=== PATIENT | male | born 1980 | race Caucasian/White ===

== ENCOUNTER 2021-01-07 12:19 | Inpatient (IN) | payer OTHER ==
[2021-01-07 13:04] VITALS: BMI 23.6
[2021-01-07] MEDS ORDERED: BISMUTH SUBSALICYLATE 262 MG/15 ML BTL PO PRN (13:32)
[2021-01-07] MEDS ORDERED: MAG HYDROX/AL HYDROX/SIMETH 30 ML UNIT-DOSE CUP PO PRN (13:32)
[2021-01-07] MEDS ORDERED: MAGNESIUM CITRATE 300 ML BOTTLE PO PRN (13:32)
[2021-01-07] MEDS ORDERED: MENTHOL/PHENOL 1 EACH UD MM PRN (13:32)
[2021-01-07] MEDS ORDERED: IBUPROFEN 400 MG TABLET (FP) PO PRN (13:32)
[2021-01-07] MEDS ORDERED: METHOCARBAMOL 500 MG TABLET PO PRN (13:32)
[2021-01-07] MEDS ORDERED: ACETAMINOPHEN 325 MG TABLET (FP) PO PRN ×2 (13:32)
[2021-01-07] MEDS ORDERED: ONDANSETRON *ODT* 4 MG TABLET SL PRN (13:32)
[2021-01-07] MEDS ORDERED: MAGNESIUM HYDROX 2400MG/30ML ORAL SUSPENSION 30 ML CUP PO PRN (13:32)
[2021-01-07] MEDS: PRENATAL VITAMINS W/ FOLIC ACID TABLET (FP) PO SCH (14:38)
[2021-01-07] MEDS: diazePAM 5 MG TABLET PO SCH ×3 (14:38→22:28)
[2021-01-07] MEDS: hydrOXYzine PAMOATE 25 MG CAPSULE (FP) PO SCH ×3 (14:38→22:27)
[2021-01-07 18:06] LABS: HEMATOCRIT 35.4 % (35.4-49); HEMOGLOBIN 12.3 GM/dL (11.7-16.9); MCH 35.2 pg (25.7-33.7); MCHC 34.7 g/dl (32.0-35.9); MEAN CELL VOLUME 101.2 fl (80-96); MEAN PLT VOLUME 6.6 fl (7.5-11.1); PLATELET COUNT 156 K/MM3 (134-434); WHITE BLOOD COUNT 3.1 K/mm3 (4.0-10.0)
[2021-01-07 18:12] LABS: ALBUMIN 4.3 g/dl (3.4-5.0); BLOOD UREA NITROGEN 7.1 mg/dL (7-18); CALCIUM 8.9 mg/dL (8.5-10.1)
[2021-01-07 18:15] LABS: CREATININE 0.8 mg/dL (0.55-1.3)
[2021-01-07 18:17] LABS: BILIRUBIN,TOTAL 0.9 mg/dL (0.2-1); TOT PROT 7.6 g/dl (6.4-8.2)
[2021-01-07 19:08] LABS: HIV INTERPRETATION NEGATIVE (NEGATIVE)
[2021-01-07] MEDS: THIAMINE HCL 100 MG TABLET (FP) PO SCH (22:27)
[2021-01-07] MEDS: MELATONIN 5 MG TABLETS PO SCH (22:27)
[2021-01-08] MEDS: diazePAM 5 MG TABLET PO SCH ×4 (06:09→22:06)
[2021-01-08] MEDS: hydrOXYzine PAMOATE 25 MG CAPSULE (FP) PO SCH ×5 (06:10→22:07)
[2021-01-08] MEDS: PRENATAL VITAMINS W/ FOLIC ACID TABLET (FP) PO SCH (10:24)
[2021-01-08] MEDS: THIAMINE HCL 100 MG TABLET (FP) PO SCH (22:07)
[2021-01-08] MEDS: MELATONIN 5 MG TABLETS PO SCH (22:07)
[2021-01-09] MEDS: diazePAM 5 MG TABLET PO SCH ×3 (05:43→22:08)
[2021-01-09] MEDS: hydrOXYzine PAMOATE 25 MG CAPSULE (FP) PO SCH ×5 (05:43→22:08)
[2021-01-09] MEDS: diazePAM 5 MG TABLET PO PRN (08:12)
[2021-01-09] MEDS: PRENATAL VITAMINS W/ FOLIC ACID TABLET (FP) PO SCH (10:09)
[2021-01-09] MEDS: THIAMINE HCL 100 MG TABLET (FP) PO SCH (22:08)
[2021-01-09] MEDS: MELATONIN 5 MG TABLETS PO SCH (22:08)
[2021-01-10] MEDS: hydrOXYzine PAMOATE 25 MG CAPSULE (FP) PO SCH ×5 (05:11→22:03)
[2021-01-10] MEDS: diazePAM 5 MG TABLET PO SCH ×2 (05:11→17:36)
[2021-01-10] MEDS: diazePAM 5 MG TABLET PO PRN (08:33)
[2021-01-10] MEDS: PRENATAL VITAMINS W/ FOLIC ACID TABLET (FP) PO SCH (10:07)
[2021-01-10] MEDS: THIAMINE HCL 100 MG TABLET (FP) PO SCH (22:03)
[2021-01-10] MEDS: MELATONIN 5 MG TABLETS PO SCH (22:03)
[2021-01-11] MEDS: hydrOXYzine PAMOATE 25 MG CAPSULE (FP) PO SCH ×2 (05:15→10:28)
[2021-01-11] MEDS ORDERED: diazePAM 5 MG TABLET PO ONE (06:00)
[2021-01-11 09:12] VITALS: BP 101/64; PULSE 92; TEMP 98.4
[2021-01-11] MEDS: PRENATAL VITAMINS W/ FOLIC ACID TABLET (FP) PO SCH (10:28)
== END 2021-01-11 11:10 | disposition home or self-care (01) | DRG 775 ==
LOC: YASAS 12:19 → Y3N 13:55
PROVIDERS: ADMIT Allergy & Immunology; ATTEND Allergy & Immunology
PROC: HZ2ZZZZ Detoxification Services for Substance Abuse Treatment (ICD-10-PCS; principal; 2021-01-07)
DX: F10.230 Alcohol dependence with withdrawal, uncomplicated (principal); G40.89 Other seizures
CPT/HCPCS: 36415; 80053; 85027; 86780; 87389; 93005; 93010; C9803; U0003; U0005

== ENCOUNTER 2023-03-01 12:49 | Inpatient (IN) | payer OTHER ==
[2023-03-01 14:11] VITALS: BMI 22.8
[2023-03-01] MEDS ORDERED: IBUPROFEN 400 MG TABLET (FP) PO PRN (14:41)
[2023-03-01] MEDS ORDERED: DICYCLOMINE HCL 10 MG CAPSULE PO PRN (14:41)
[2023-03-01] MEDS ORDERED: guaiFENesin 600 MG TABLET.ER (FP) PO PRN (14:41)
[2023-03-01] MEDS ORDERED: NALOXONE HCL 0.4 MG/ML VIAL IM PRN (14:41)
[2023-03-01] MEDS ORDERED: MAG HYDROX/AL HYDROX/SIMETH 30 ML UNIT-DOSE CUP PO PRN (14:41)
[2023-03-01] MEDS ORDERED: LORazepam 2 MG TABLET PO ONE (14:41)
[2023-03-01] MEDS ORDERED: hydrOXYzine PAMOATE 25 MG CAPSULE (FP) PO PRN (14:41)
[2023-03-01] MEDS ORDERED: BENZONATATE 200 MG CAPSULE PO PRN (14:41)
[2023-03-01] MEDS ORDERED: POLYETHYLENE GLYCOL (HEALTHYLAX) 3350 17 GM PACKET PO PRN (14:41)
[2023-03-01] MEDS ORDERED: IBUPROFEN 600 MG TABLET (FP) PO PRN (14:41)
[2023-03-01] MEDS ORDERED: METHOCARBAMOL 500 MG TABLET PO PRN (14:41)
[2023-03-01] MEDS ORDERED: ACETAMINOPHEN 325 MG TABLET (FP) PO PRN (14:41)
[2023-03-01] MEDS ORDERED: ONDANSETRON *ODT* 4 MG TABLET SL PRN (14:41)
[2023-03-01] MEDS ORDERED: MAGNESIUM HYDROX 2400MG/30ML ORAL SUSPENSION 30 ML CUP PO PRN (14:41)
[2023-03-01] MEDS ORDERED: BENZOCAINE/MENTHOL (CHLORASEPTIC ) LOZENGE MM PRN (14:41)
[2023-03-01] MEDS ORDERED: NALOXONE HCL (KLOXXADO) 8 MG SPRAY NS PRN (14:41)
[2023-03-01] MEDS ORDERED: LORazepam 1 MG TABLET PO PRN (14:41)
[2023-03-01] MEDS ORDERED: BISMUTH SUBSALICYLATE 262 MG/15 ML BTL PO PRN (14:41)
[2023-03-01] MEDS ORDERED: LOPERAMIDE HCL 2 MG CAPSULE PO PRN (14:41)
[2023-03-01] MEDS ORDERED: LORazepam 2 MG TABLET ONE (15:22)
[2023-03-01] MEDS ORDERED: PRENATAL VITAMINS W/ FOLIC ACID TABLET (FP) PO ONE (15:29)
[2023-03-01] MEDS: PRENATAL VITAMINS W/ FOLIC ACID TABLET (FP) PO SCH (15:31)
[2023-03-01] MEDS: LORazepam 2 MG TABLET PO SCH ×2 (17:06→22:35)
[2023-03-01] MEDS: MELATONIN 5 MG TABLETS PO SCH (22:34)
[2023-03-01] MEDS: THIAMINE HCL 100 MG TABLET (FP) PO SCH (22:34)
[2023-03-02] MEDS: LORazepam 2 MG TABLET PO SCH ×4 (05:55→22:24)
[2023-03-02] MEDS: PRENATAL VITAMINS W/ FOLIC ACID TABLET (FP) PO SCH (10:12)
[2023-03-02 11:03] LABS: HEMATOCRIT 35.1 % (35.4-49); HEMOGLOBIN 11.8 GM/dL (11.7-16.9); MCH 33.2 pg (25.7-33.7); MCHC 33.6 g/dl (32.0-35.9); MEAN CELL VOLUME 98.7 fl (80-96); MEAN PLT VOLUME 7.7 fl (7.5-11.1); PLATELET COUNT 62 10^3/uL (134-434); RBC 3.55 M/mm3 (4.00-5.60); RDW 15.5 % (11.9-15.9); WHITE BLOOD COUNT 3.3 K/mm3 (4.0-10.0)
[2023-03-02 11:08] LABS: POTASSIUM 3.4 mmol/L (3.5-5.1)
[2023-03-02 11:12] LABS: ALBUMIN 3.7 g/dl (3.4-5.0)
[2023-03-02 11:13] LABS: BLOOD UREA NITROGEN 4.1 mg/dL (7-18); CALCIUM 9.8 mg/dL (8.5-10.1)
[2023-03-02 11:15] LABS: CREATININE 0.8 mg/dL (0.55-1.3)
[2023-03-02 11:16] LABS: BILIRUBIN,TOTAL 1.8 mg/dL (0.2-1); TOT PROT 6.6 g/dl (6.4-8.2)
[2023-03-02] MEDS: MELATONIN 5 MG TABLETS PO SCH (22:24)
[2023-03-02] MEDS: THIAMINE HCL 100 MG TABLET (FP) PO SCH (22:24)
[2023-03-03] MEDS: LORazepam 1 MG TABLET PO SCH ×3 (05:35→17:24)
[2023-03-03] MEDS ORDERED: POTASSIUM CHLORIDE ORAL LIQUID 20 MEQ/15 ML PO SCH (10:00)
[2023-03-03] MEDS: PRENATAL VITAMINS W/ FOLIC ACID TABLET (FP) PO SCH (10:27)
[2023-03-03] MEDS: LACTULOSE 20 GM/30 ML UDC (FOR ORAL USE ONLY) PO SCH ×3 (10:27→17:45)
[2023-03-03 18:24] VITALS: RESP 18
[2023-03-03 21:51] VITALS: BP 123/83; PULSE 97; TEMP 98.2
[2023-03-03] MEDS ORDERED: MELATONIN 5 MG TABLETS PO SCH (22:00)
[2023-03-04] MEDS ORDERED: LORazepam 0.5 MG TABLET PO PRN
[2023-03-04] MEDS ORDERED: LORazepam 0.5 MG TABLET PO SCH (05:00)
[2023-03-05] MEDS ORDERED: LORazepam 0.5 MG TABLET PO ONE (05:00)
== END 2023-03-03 20:37 | disposition left against medical advice (07) | DRG 770 ==
LOC: YASAS 12:49 → Y3N 15:30
PROVIDERS: ADMIT Allergy & Immunology; ATTEND Surgery
PROC: HZ2ZZZZ Detoxification Services for Substance Abuse Treatment (ICD-10-PCS; principal; 2023-03-01)
DX: F10.230 Alcohol dependence with withdrawal, uncomplicated (principal); E87.6 Hypokalemia; E72.20 Disorder of urea cycle metabolism, unspecified; R73.03 Prediabetes; Z86.69 Personal history of other diseases of the nervous system and sense organs; Z56.0 Unemployment, unspecified
CPT/HCPCS: 36415; 80053; 82140; 85027; 86780; 87635; 87811; 93005; 93010